=== PATIENT | female | born 1950 | race Caucasian/White ===

== ENCOUNTER 2017-05-26 10:53 | Day surgery (SDC) | payer MEDICARE, OTHER ==
[~2017-05-26] VITALS: Ht 152.4 cm; Wt 77.1 kg
[~2017-05-26 10:53] MED LIST: ACIDOPHILUS1 EAC2 PO; CHOLESTYRAMINE P4 GM PO; DOXAZOSIN MESYLA2 MG PO; GLUCOPHAGE500 MG PO; KLOR-CON M2020 MEQ PO; LIPITOR20 MG; MAXZIDE 75 MG-501 EA PO; MUCINEX DM ER1 EAC1 PO; ONE DAILY FOR1 EACH PO; RANITIDINE HCL150 M1 PO; SUPER B COMPLE150 MG PO; ZYRTEC10 MG PO
--- NOTE | 2017-05-26 12:32 | NUR ---
05/26/17 1232 Karina Carnes 1218: PT ARRIVED TO PACU ON 3L NC, ABD IS SOFT AND ROUND. PT RESPONDING TO QUESTIONS AND DENINES ANY PAIN OR NAUSEA. 1220: PT O2 SAT 100% O2 REMOVED. 1222: CBG 153
--- NOTE | 2017-05-28 10:46 | OR ---
[facility] [address] [place] [address] Signed DATE OF PROCEDURE: 05/26/17 PROCEDURE PERFORMED Bone marrow biopsy and aspirate under conscious sedation. DESCRIPTION OF PROCEDURE After explaining the risks, benefits, and alternatives of bone marrow biopsy and aspiration under conscious sedation for evaluation of a multiple myeloma and obtaining informed written consent, the patient was brought to the endoscopy suite, a time-out was taken. The patient and the procedure were correctly identified. She was placed in the prone position. Conscious sedation was supplied by CAMILLE Green with 1 mg of intravenous midazolam and 100 mcg of intravenous Fentanyl. The left posterior iliac crest was prepped and draped in the usual sterile manner. Local anesthesia over the left posterior iliac crest was obtained with 1 mL of 1% Lidocaine and a left posterior iliac crest bone marrow biopsy and aspirate were obtained without adverse affects. Chauncey Steve MD RQ/Modl /[id number] cc: Tanya Alvarado MD Electronically Signed By: CHAUNCEY STEVE MD 05/28/17 1046 PATIENT NAME: NUBIA ARCHER OPERATIVE REPORT DATE OF : 52 PHYSICIAN: CHAUNCEY STEVE MD REPORT #: [id number] REPORT IS CONFIDENTIAL AND NOT TO BE RELEASED WITHOUT AUTHORIZATION
== END 2017-05-26 13:24 | disposition home or self-care (01) ==
LOC: DS 10:53 → OPS 10:53 → DS 12:00
PROVIDERS: Specialist
PROC: 07DR3ZX Extraction of Iliac Bone Marrow, Percutaneous Approach, Diagnostic (ICD-10-PCS; principal; 2017-05-26 12:00)
DX: D61.818 Other pancytopenia (principal); E11.22 Type 2 diabetes mellitus with diabetic chronic kidney disease; N18.4 Chronic kidney disease, stage 4 (severe); K74.60 Unspecified cirrhosis of liver; K76.6 Portal hypertension; K31.89 Other diseases of stomach and duodenum; E66.9 Obesity, unspecified; E78.5 Hyperlipidemia, unspecified; Z90.49 Acquired absence of other specified parts of digestive tract; Z88.5 Allergy status to narcotic agent; Z88.0 Allergy status to penicillin; Z79.899 Other long term (current) drug therapy; Z79.02 Long term (current) use of antithrombotics/antiplatelets; Z68.30 Body mass index [BMI] 30.0-30.9, adult
CPT/HCPCS: 85025; 99152; J2250; J3010; J7040